=== PATIENT | male | born 1980 | race Caucasian/White ===

== ENCOUNTER 2017-08-02 12:36 | Emergency (ER) | payer MEDICARE, MEDICAID ==
[~2017-08-02 12:36] MED LIST: CEP500 PO; CEPH250T5 PO; CYC10 PO; IBUP100T51 PO; LOR5 PO; NAP250 PO; NO ROUTINE MEDS; PER PO; SULF-170 PO
[2017-08-02 12:42] VITALS: BP 141/90
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
[2017-08-02] MEDS ORDERED: ENT KIT ONE (13:05)
[2017-08-02] MEDS ORDERED: LIDO/EPI 2% MDV 1:100,000 20ML INFIL ONE (15:30)
[2017-08-02] MEDS ORDERED: PHENYLEPHRINE 0.5% 15 ML BTL ONE (15:31)
== END 2017-08-02 14:25 | disposition home or self-care (01) ==
LOC: ER 12:36
DX: R04.0 Epistaxis (principal)
CPT/HCPCS: 99282; A9270

== ENCOUNTER 2017-10-01 17:10 | Emergency (ER) | payer MEDICARE, MEDICAID ==
[2017-10-01 17:20] VITALS: BP 129/78
[2017-10-01] MEDS ORDERED: SULF-198 PO (17:40)
--- NOTE | 2017-10-01 17:41 | ER Report ---
History and Physical Time Seen By MD: 17:35 Hx. of Stated Complaint: PT NOTICED "GROWTH" UNDER HIS SCROTUM 2 DAYS AGO. WITH REPORTS PAIN WITH SITTING HPI/ROS CHIEF COMPLAINT: Abscess of scrotum HISTORY OF PRESENT ILLNESS: Patient is a 36-year-old male who presents the ED with complaint of an abscess on his scrotal area. He states that he has noticed some discharge from this area. He states it has been painful to sit for the past couple days. He denies any fever. He states that he does not usually see a primary care provider. He usually does go into see a local urgent care for his issues. He denies any testicular pain or swelling. REVIEW OF SYSTEMS: Constitutional: No fever, no chills. Cardiovascular: No chest pain, no palpitations. Respiratory: No cough, no shortness of breath. Gastrointestinal: No abdominal pain, no vomiting. Genitourinary: No hematuria. Musculoskeletal: No back pain. Skin: The history of present illness. . Allergies: Coded Allergies: amoxicillin (Verified Allergy, Mild, 08/02/17) Home Meds No Active Prescriptions or Reported Meds Hx Smoking: No Smoking Status: Never Smoker Hx Alcohol Use: No Constitutional Vital Sign - Last 24 Hours 10/01/17 17:14 Temp 98.2 Pulse 74 Resp 18 B/P (MAP) 138/106 Pulse Ox 94 O2 Delivery Room Air Physical Exam General Appearance: The patient is alert, has no immediate need for airway protection and no signs of toxicity. Patient appears to be in no acute distress. Respiratory: There are no retractions, lungs are clear to auscultation. Cardiovascular: Regular rate and rhythm. Skin: There is a small area of fluctuance measuring about 4-5 mm in diameter on the base of the scrotum. There is some slight erythema and some purulent discharge appreciated. Musculoskeletal: Neck is supple non tender. Extremities are nontender, nonswollen and have full range of motion. Medical Decision Making ED Course/Re-evaluation ED Course Procedure: Scrotal Abscess drainage. The patient's abscess was located on the scrotum. I obtained verbal consent from the patient to drain the abscess who was informed about the possibility of bleeding and pain. 1% lidocaine without epinephrine was used as local anesthetic. The abscess was incised with #11 scalpel and a small amount of purulent drainage was expressed. I irrigated the wound. The patient tolerated the procedure well. The procedure was performed by myself. Decision to Disposition Date: Oct 01, 2017 Decision to Disposition Time: 17:39 Depart Departure Latest Vital Signs Vital Signs Date Time Temp Pulse Resp B/P (MAP) Pulse Ox O2 Delivery O2 Flow Rate FiO2 10/01/17 17:14 98.2 74 18 138/106 94 Room Air Impression: Primary Impression: Carbuncle, scrotum Condition: Improved Disposition: HOME OR SELF-CARE New Scripts Sulfamethoxazole/Trimet 800-160 Mg Tab (BACTRIM DS TABLET) 1 Each Tablet 1 TAB PO Q12H for 10 Days, #20 TAB Prov: JANINA MICHELE PA-C 10/01/17 Patient Instructions: Abscess (ED), Abscess Incision and Drainage (GEN) Additional Instructions: Monitor for signs and symptoms of worsening infection including worsening redness and swelling, discharge, fever. Take antibiotics as prescribed. If having any worsening or concerning symptoms may return to the emergency department. Follow-up with primary care provider in 2-3 days. JANINA MICHELE PA-C Oct 01, 2017 17:41
== END 2017-10-01 17:55 | disposition home or self-care (01) ==
LOC: ER 17:17
DX: N49.2 Inflammatory disorders of scrotum (principal)
CPT/HCPCS: 87070; 99283

== ENCOUNTER 2017-12-07 19:06 | Emergency (ER) | payer MEDICARE, MEDICAID ==
[~2017-12-07 19:06] MED LIST changes: +SULF-198 PO
[2017-12-07 19:14] VITALS: BP 134/91
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
== END 2017-12-07 19:25 ==
LOC: ER 19:22
DX: Z02.89 Encounter for other administrative examinations (principal); F10.120 Alcohol abuse with intoxication, uncomplicated
CPT/HCPCS: 99281